=== PATIENT | female | born 1935 | race Caucasian/White ===

== ENCOUNTER 2016-03-31 17:37 | Inpatient (IN) | payer MEDICARE, BC ==
[~2016-03-31] VITALS: Ht 165.1 cm; Wt 74.8 kg
[2016-03-31 17:54] VITALS: BP 184/69
[2016-03-31 18:28] LABS: LYMPHOCYTES % (AUTO) 22.9 % (20.0-45.0); MEAN CORPUSCULAR HEMOGLOBIN 22.5 PG (27.0-31.0); MEAN CORPUSCULAR HGB CONC 30.7 G/DL (32.0-36.0); MEAN CORPUSCULAR VOLUME 73 FL (80-99); MEAN PLATELET VOLUME 7.6 FL (6.5-10.1); MONOCYTES % (AUTO) 8.5 % (1.0-10.0); NEUTROPHILS % (AUTO) 66.6 % (45.0-75.0); PLATELET COUNT 331 K/UL (150-450); RED BLOOD COUNT 4.82 M/UL (4.20-5.40); RED CELL DISTRIBUTION WIDTH 21.9 % (11.6-14.8); WHITE BLOOD COUNT 8.1 K/UL (4.8-10.8)
[2016-03-31 18:46] LABS: TROPONIN I < 0.30 ng/mL (<=0.30)
[2016-03-31 18:49] LABS: ALANINE AMINOTRANSFERASE 10 U/L (3-33); ALBUMIN/GLOBULIN RATIO 1.3 (1.0-2.7); ANION GAP 15 (5-15); ASPARTATE AMINO TRANSFERASE 25 U/L (5-40); CALCIUM 8.9 mg/dL (8.6-10.2); CARBON DIOXIDE 26 mEQ/L (20-30); CHLORIDE 98 mEQ/L (98-107); CREATININE 0.8 mg/dL (0.5-0.9); HEMOLYSIS 134; POTASSIUM 4.9 mEQ/L (3.4-4.9); SODIUM 139 mEQ/L (135-145); TOTAL PROTEIN 6.3 g/dL (6.6-8.7)
--- NOTE | 2016-03-31 19:12 | Emergency Room Report ---
History of Present Illness General Chief Complaint: Chest Pain Source: Patient, EMS Present Illness HPI Patient with increasing episodes of chest pain through the last 2 weeks. Now today, severe 8-9/10 chest pressure = substernal, associated nausea with exertion today. EMS treated with nitrates and aspirin. Improved with nitrates - pain dec to 3. Never with hypertension. This was also noted by EMS. Patient denies BECK, dyspnea, fever, cough, NVD, chest wall pain, palpitations, diaphoresis, anxiety, change in bowels, dysuria, rashes. H/O dementia, hypothyroidism, glaucoma, breast cancer. 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 Last Menstrual Period: YEARS Reviewed Nursing Documentation: PMH: Agreed, PSxH: Agreed Nursing Documentation-PMH Past Medical History: No Stated History Hx Cardiac Problems: No Hx Hypertension: No Hx Diabetes: No Review of Systems All Other Systems: negative except mentioned in HPI Physical Exam Vital Signs Date Time Temp Pulse Resp B/P Pulse Ox O2 Delivery O2 Flow Rate FiO2 03/31/16 17:38 98.4 60 13 184/69 100 Room Air Sp02 EP Interpretation: reviewed, normal General Appearance: well appearing, no apparent distress, alert Head: normocephalic, atraumatic Eyes: bilateral eye PERRL, bilateral eye normal inspection ENT: moist mucus membranes Neck: full range of motion, supple, no bony tend Respiratory: chest non-tender, lungs clear, normal breath sounds, other - masectomies Cardiovascular #1: regular rate, rhythm, no murmur, edema Cardiovascular #2: 2+ radial (L) Gastrointestinal: normal inspection, normal bowel sounds, non tender Musculoskeletal: digits/nails normal, normal range of motion Neurologic: alert, motor strength/tone normal, DTRs symmetric, sensory intact, speech normal Psychiatric: other - poor recent memory Skin: normal color, warm/dry, other - lesion lower leg Medical Decision Making Diagnostic Impression: Primary Impression: ACS (acute coronary syndrome) Additional Impression: Hypertension Qualified Codes: I10 - Essential (primary) hypertension ER Course Patient with 2 weeks of intermittent chest pain, now more severe today. DDx: ACS, AMI, chest wall pain, GERD amongst others. Complicated patient as history of dementia. New hypertension. Evaluation with EKG, labs, CXR. Continued treatment with nitrates. Aspirin given in field. Patient sy strongly suggestive of ACS with prolonged chest pain at rest. Improved with nitrates. EKG no AMI. CXR - axillary clips, L effusion, cardiomegaly. Labs negative initial troponin. Normal WBC, slight anemia. Patient initially refused admission. Improved but still hypertensive. Admit tele Dr. Lee. Laboratory Tests Test 03/31/16 18:07 04/01/16 05:55 White Blood Count 8.1 K/UL (4.8-10.8) 7.7 K/UL (4.8-10.8) Red Blood Count 4.82 M/UL (4.20-5.40) 5.16 M/UL (4.20-5.40) Hemoglobin 10.9 G/DL (12.0-16.0) L 11.5 G/DL (12.0-16.0) L Hematocrit 35.4 % (37.0-47.0) L 37.8 % (37.0-47.0) Mean Corpuscular Volume 73 FL (80-99) L 73 FL (80-99) L Mean Corpuscular Hemoglobin 22.5 PG (27.0-31.0) L 22.4 PG (27.0-31.0) L Mean Corpuscular Hemoglobin Concent 30.7 G/DL (32.0-36.0) L 30.6 G/DL (32.0-36.0) L Red Cell Distribution Width 21.9 % (11.6-14.8) H 21.7 % (11.6-14.8) H Platelet Count 331 K/UL (150-450) 343 K/UL (150-450) Mean Platelet Volume 7.6 FL (6.5-10.1) 7.8 FL (6.5-10.1) Neutrophils (%) (Auto) 66.6 % (45.0-75.0) 74.0 % (45.0-75.0) Lymphocytes (%) (Auto) 22.9 % (20.0-45.0) 16.6 % (20.0-45.0) L Monocytes (%) (Auto) 8.5 % (1.0-10.0) 7.3 % (1.0-10.0) Eosinophils (%) (Auto) 1.0 % (0.0-3.0) 0.6 % (0.0-3.0) Basophils (%) (Auto) 1.0 % (0.0-2.0) 1.4 % (0.0-2.0) Sodium Level 139 mEQ/L (135-145) Potassium Level 4.9 mEQ/L (3.4-4.9) Chloride Level 98 mEQ/L (98-107) Carbon Dioxide Level 26 mEQ/L (20-30) Anion Gap 15 (5-15) Blood Urea Nitrogen 18 mg/dL (7-23) Creatinine 0.8 mg/dL (0.5-0.9) Estimate Glomerular Filtration Rate mL/min (>60) Glucose Level 99 mg/dL (74-106) Calcium Level 8.9 mg/dL (8.6-10.2) Total Bilirubin 0.5 mg/dL (0.0-1.2) Aspartate Amino Transferase (AST) 25 U/L (5-40) Alanine Aminotransferase (ALT) 10 U/L (3-33) Alkaline Phosphatase 81 U/L (35-104) Total Creatine Kinase 73 U/L (26-140) Troponin I < 0.30 ng/mL (<=0.30) Pending Total Protein 6.3 g/dL (6.6-8.7) L Albumin 3.6 g/dL (3.5-5.2) Globulin 2.7 g/dL Albumin/Globulin Ratio 1.3 (1.0-2.7) Prothrombin Time Pending Prothrombin Time INR Pending PTT Pending C-Reactive Protein, Quantitative Pending Triglycerides Level Pending Cholesterol Level Pending LDL Cholesterol Pending HDL Cholesterol Pending Cholesterol/HDL Ratio Pending Thyroid Stimulating Hormone (TSH) Pending EKG Diagnostic Results Rate: bradycardiac ST Segments: no acute changes Rhythm Strip Diag. Results EP Interpretation: yes Rhythm: no PVC's, no ectopy, other - Stanton Chest X-Ray Diagnostic Results EP Interpretation: Yes Findings: no consolidation, no effusion, no pneumothorax, other - scoleosis and inc cor Number of Views: 1 Last Vital Signs Date Time Temp Pulse Resp B/P Pulse Ox O2 Delivery O2 Flow Rate FiO2 04/01/16 06:29 174/79 04/01/16 04:00 97.0 57 20 96 Room Air Status: improved Disposition: ADMITTED INPATIENT Condition: Serious Referrals: NOT CHOSEN IPA/,REFERRING (PCP) Quintin Nation M.D. Mar 31, 2016 19:12
[2016-03-31 19:30] VITALS: BP 162/71
[2016-03-31 20:30] VITALS: BP 153/71
[2016-03-31] MEDS ORDERED: Diltiazem 25mg/5ml IV PRN (22:00)
[2016-03-31] MEDS ORDERED: Miralax 17gm pkt ORAL PRN (22:00)
[2016-03-31] MEDS ORDERED: Nitroglycerin Subl 0.4mg tab (Bottle Of 25) SL PRN (22:00)
[2016-03-31] MEDS ORDERED: Ketorolac 30mg Inj IV PRN (22:00)
[2016-03-31] MEDS ORDERED: DuoNeb 0.5-3(2.5)mg/3ml neb HHN PRN (22:00)
[2016-04-01] VITALS (8 sets, daily range): BP systolic 125–188; BP diastolic 75–96
[2016-04-01] MEDS: Enalaprilat 2.5mg/2ml Inj IV PRN ×3 (00:41→17:21)
[2016-04-01] MEDS ORDERED: Timolol 0.5% Op Soln 2.5ml BOTH EYES ONE ×2 (01:00→01:30)
[2016-04-01] MEDS ORDERED: BISACODYL10 M1 RC (04:07)
[2016-04-01] MEDS ORDERED: LYRICA75 M1 ORAL (04:07)
[2016-04-01] MEDS ORDERED: POLYETHYLENE GL17 GM ORAL (04:07)
[2016-04-01] MEDS ORDERED: MELATONIN5 M4 ORAL (04:07)
[2016-04-01] MEDS ORDERED: BENADRYL25 M3 PO (04:07)
[2016-04-01] MEDS ORDERED: COMBIGAN EYE DRO5 ML OP (04:07)
[2016-04-01] MEDS ORDERED: FAMOTIDINE20 MG ORAL (04:07)
[2016-04-01] MEDS ORDERED: CALCIUM CARBON500 M1 PO (04:07)
[2016-04-01] MEDS ORDERED: LEVOTHYROXINE50 MCG ORAL (04:07)
[2016-04-01] MEDS ORDERED: IMODIUM A-D2 M2 PO (04:07)
[2016-04-01] MEDS ORDERED: DOCUSATE SODIU100 M2 ORAL (04:07)
[2016-04-01] MEDS ORDERED: LEXAPRO10 MG ORAL (04:07)
[2016-04-01] MEDS ORDERED: ROBITUSSIN COU1 EACH PO (04:34)
[2016-04-01] MEDS ORDERED: TRAVATAN Z5 ML OP (04:34)
[2016-04-01] MEDS ORDERED: TRAZODONE HCL300 MG ORAL (04:34)
[2016-04-01] MEDS ORDERED: TYLENOL EXTRA500 MG ORAL (04:34)
[2016-04-01] MEDS ORDERED: SEROQUEL50 MG ORAL ×2 (04:34)
[2016-04-01] MEDS ORDERED: FLECTOR1 EACH TP (04:34)
[2016-04-01] MEDS ORDERED: VITAMIN D400 INTLU ORAL (04:34)
[2016-04-01] MEDS ORDERED: VOLTAREN100 G1 TP ×2 (04:35)
[2016-04-01 07:27] LABS: BASOPHILS % (AUTO) 1.4 % (0.0-2.0); EOSINOPHILS % (AUTO) 0.6 % (0.0-3.0); LYMPHOCYTES % (AUTO) 16.6 % (20.0-45.0); MEAN CORPUSCULAR HEMOGLOBIN 22.4 PG (27.0-31.0); MEAN CORPUSCULAR HGB CONC 30.6 G/DL (32.0-36.0); MEAN CORPUSCULAR VOLUME 73 FL (80-99); MEAN PLATELET VOLUME 7.8 FL (6.5-10.1); MONOCYTES % (AUTO) 7.3 % (1.0-10.0); PLATELET COUNT 343 K/UL (150-450); RED BLOOD COUNT 5.16 M/UL (4.20-5.40); RED CELL DISTRIBUTION WIDTH 21.7 % (11.6-14.8); WHITE BLOOD COUNT 7.7 K/UL (4.8-10.8)
[2016-04-01 08:07] LABS: TROPONIN I < 0.30 ng/mL (<=0.30)
[2016-04-01 08:11] LABS: CHOLESTEROL 240 mg/dL (< 200); CRP QUANT < 0.3 mg/dL (< 0.5); HEMOLYSIS 30; LDL CHOLESTEROL (CALC.) 139 mg/dL (60-99)
[2016-04-01] MEDS: Aspirin Baby 81mg ORAL SCH (08:54)
[2016-04-01] MEDS: Timolol 0.5% Op Soln 2.5ml BOTH EYES SCH ×2 (08:54→17:21)
[2016-04-01] MEDS: Heparin 5000 units/ml inj SUBQ SCH ×2 (08:55→21:32)
[2016-04-01] MEDS ORDERED: Docusate 100mg cap ORAL PRN (11:15)
[2016-04-01] MEDS: Lyrica 75mg cap ORAL SCH ×2 (12:03→17:22)
--- NOTE | 2016-04-01 12:28 | Diagnostic Imaging Report ---
Indication: Chest pain Technique: One view of the chest Comparison: none Findings: There is blunting of left costophrenic angle. There is mild retrocardiac atelectasis and/or consolidation. The heart is enlarged. The aorta is tortuous.. Surgical clips are seen in the left axilla Impression: Small left pleural effusion Left basilar atelectasis and/or consolidation Post surgical changes of the left axilla Cardiomegaly This agrees with the preliminary interpretation provided by the emergency room physician
--- NOTE | 2016-04-01 14:37 | Consultation ---
History of Present Illness General Date patient seen: Apr 01, 2016 Chief Complaint: Chest Pain Referring physician: Dr. Murphy Reason for Consultation: Inpatient management Present Illness HPI 80 year old female with hx of advanced dementia, htn, chronic anemia, assisted living resident, EMILEE with cc chest pain through the last 2 weeks. Pt's blood pressure was apparently very high (not documented). EMS treated the patient with nitrates and aspirin and she improved with nitrates. She is admitted to rule out ACS. Currently pt is asymptomatic. She is anxious that she might get another episode of chest pain. Allergies: Coded Allergies: CODEINE (Verified Allergy, Unknown, 03/31/16) LATEX (Verified Allergy, Unknown, 03/31/16) LEMON (Verified Allergy, Unknown, 03/31/16) SULFA (SULFONAMIDE ANTIBIOTICS) (Unverified Allergy, Unknown, 03/31/16) Uncoded Allergies: SULFA (Allergy, Unknown, 03/31/16) Medication History Scheduled Brimonidine Tartrate/Timolol (Combigan Eye Drops), 1 DRP OP BID, (Reported) Calcium Carbonate (Calcium Carbonate), 500 MG PO EVERY 4 HOURS, (Reported) Diclofenac Sodium (Voltaren), 100 GM TP TID, (Reported) Escitalopram Oxalate* (Lexapro*), 10 MG ORAL BEDTIME, (Reported) Famotidine (Famotidine), 20 MG ORAL TWICE A DAY, (Reported) Levothyroxine Sodium* (Levothyroxine Sodium*), 50 MCG ORAL DAILY, (Reported) Melatonin (Melatonin), 5 MG ORAL BEDTIME, (Reported) Pregabalin* (Lyrica*), 75 MG ORAL THREE TIMES A DAY, (Reported) Quetiapine Fumarate (Seroquel), 25 MG ORAL BEDTIME, (Reported) Travoprost (Travatan Z), 1 DRP OP BEDTIME, (Reported) Trazodone Hcl (Trazodone Hcl), 300 MG ORAL BEDTIME, (Reported) Vitamin D (Vitamin D3), 5,000 UNITS ORAL DAILY, (Reported) Scheduled PRN Acetaminophen* (Tylenol Extra Strength*), 650 MG ORAL Q6H PRN for For Pain, ( Reported) Bisacodyl (Bisacodyl), 10 MG RC DAILY PRN for Constipation, (Reported) Diclofenac Epolamine (Flector), 1 EACH TP EVERY 12 HOURS PRN for For Pain, ( Reported) Diclofenac Sodium (Voltaren), 100 GM TP EVERY 6 HOURS PRN for For Pain, ( Reported) Diphenhydramine HCl (Benadryl), 25 MG PO BEDTIME PRN for Insomnia, (Reported) Docusate Sodium (Docusate Sodium), 100 MG ORAL BID PRN for Constipation, ( Reported) Guaifenesin/Dextromethorphan (Robitussin Sxssw-Wvnut-Llba Dm), 10 ML PO EVERY 4 HOURS PRN for For Cough, (Reported) Loperamide HCl (Imodium A-D), 2 MG PO for Diarrhea, (Reported) Polyethylene Glycol 3350* (Polyethylene Glycol 3350*), 17 GM ORAL DAILY PRN for Constipation, (Reported) Quetiapine Fumarate (Seroquel), 25 MG ORAL EVERY 4 HOURS PRN for For Anxiety, ( Reported) Trazodone Hcl (Trazodone Hcl), 75 MG ORAL BEDTIME PRN for Insomnia, (Reported) Patient History Healthcare decision maker Resuscitation status Advanced Directive on File Past Medical/Surgical History Past Medical/Surgical History: (1) Advanced dementia (2) Chronic anemia Review of Systems All Other Systems: negative except mentioned in HPI Physical Exam General Appearance: WD/WN Lines, tubes and drains: peripheral HEENT: normocephalic, atraumatic Neck: non-tender, normal alignment Respiratory/Chest: chest wall non-tender, lungs clear Breasts: no masses Cardiovascular/Chest: normal peripheral pulses, normal rate Abdomen: normal bowel sounds, non tender Extremities: normal range of motion, non-tender Skin Exam: other - blow knee lesions, see the pictures Neurologic: chummer II-XII grossly normal, no motor/sensory deficits Last 24 Hour Vital Signs Date Time Temp Pulse Resp B/P Pulse Ox O2 Delivery O2 Flow Rate FiO2 04/01/16 13:02 97.4 04/01/16 12:03 80 134/92 04/01/16 12:00 97.4 80 19 134/92 95 Room Air 04/01/16 09:57 04/01/16 09:54 97.0 78 18 163/93 96 Room Air 04/01/16 08:00 97.0 78 18 163/93 96 Room Air 04/01/16 08:00 68 04/01/16 06:29 174/79 04/01/16 04:00 97.0 57 20 169/75 96 Room Air 04/01/16 04:00 55 04/01/16 00:41 164/91 04/01/16 00:15 155/95 04/01/16 00:00 96.8 65 20 164/91 96 Room Air 04/01/16 00:00 61 03/31/16 20:30 96.6 71 18 153/71 96 Room Air 03/31/16 19:51 98.4 81 16 162/71 100 Room Air 03/31/16 19:30 98.4 81 16 162/71 100 Room Air 03/31/16 19:13 196/60 03/31/16 19:12 190/73 03/31/16 17:54 98.4 87 13 184/69 100 Room Air 03/31/16 17:54 60 13 Room Air 03/31/16 17:38 98.4 60 13 184/69 100 Room Air Laboratory Tests Test 03/31/16 18:07 04/01/16 05:55 White Blood Count 8.1 K/UL (4.8-10.8) 7.7 K/UL (4.8-10.8) Red Blood Count 4.82 M/UL (4.20-5.40) 5.16 M/UL (4.20-5.40) Hemoglobin 10.9 G/DL (12.0-16.0) L 11.5 G/DL (12.0-16.0) L Hematocrit 35.4 % (37.0-47.0) L 37.8 % (37.0-47.0) Mean Corpuscular Volume 73 FL (80-99) L 73 FL (80-99) L Mean Corpuscular Hemoglobin 22.5 PG (27.0-31.0) L 22.4 PG (27.0-31.0) L Mean Corpuscular Hemoglobin Concent 30.7 G/DL (32.0-36.0) L 30.6 G/DL (32.0-36.0) L Red Cell Distribution Width 21.9 % (11.6-14.8) H 21.7 % (11.6-14.8) H Platelet Count 331 K/UL (150-450) 343 K/UL (150-450) Mean Platelet Volume 7.6 FL (6.5-10.1) 7.8 FL (6.5-10.1) Neutrophils (%) (Auto) 66.6 % (45.0-75.0) 74.0 % (45.0-75.0) Lymphocytes (%) (Auto) 22.9 % (20.0-45.0) 16.6 % (20.0-45.0) L Monocytes (%) (Auto) 8.5 % (1.0-10.0) 7.3 % (1.0-10.0) Eosinophils (%) (Auto) 1.0 % (0.0-3.0) 0.6 % (0.0-3.0) Basophils (%) (Auto) 1.0 % (0.0-2.0) 1.4 % (0.0-2.0) Sodium Level 139 mEQ/L (135-145) Potassium Level 4.9 mEQ/L (3.4-4.9) Chloride Level 98 mEQ/L (98-107) Carbon Dioxide Level 26 mEQ/L (20-30) Anion Gap 15 (5-15) Blood Urea Nitrogen 18 mg/dL (7-23) Creatinine 0.8 mg/dL (0.5-0.9) Estimat Glomerular Filtration Rate mL/min (>60) Glucose Level 99 mg/dL (74-106) Calcium Level 8.9 mg/dL (8.6-10.2) Total Bilirubin 0.5 mg/dL (0.0-1.2) Aspartate Amino Transf (AST/SGOT) 25 U/L (5-40) Alanine Aminotransferase (ALT/SGPT) 10 U/L (3-33) Alkaline Phosphatase 81 U/L (35-104) Total Creatine Kinase 73 U/L (26-140) Troponin I < 0.30 ng/mL (<=0.30) < 0.30 ng/mL (<=0.30) Total Protein 6.3 g/dL (6.6-8.7) L Albumin 3.6 g/dL (3.5-5.2) Globulin 2.7 g/dL Albumin/Globulin Ratio 1.3 (1.0-2.7) Prothrombin Time 10.0 SEC (9.30-11.50) Prothromb Time International Ratio 1.0 (0.9-1.1) Activated Partial Thromboplast Time 23 SEC (23-33) C-Reactive Protein, Quantitative < 0.3 mg/dL (< 0.5) Triglycerides Level 109 mg/dL (< 150) Cholesterol Level 240 mg/dL (< 200) H LDL Cholesterol 139 mg/dL (60-99) H HDL Cholesterol 79 mg/dL (> 60) H Cholesterol/HDL Ratio 3.0 (3.3-4.4) L Thyroid Stimulating Hormone (TSH) 4.040 uIU/mL (0.300-4.500) Height (Feet): 5 Height (Inches): 5.00 Weight (Pounds): 165 Medications Current Medications Medications (Trade) Dose Ordered Sig/Blossom Route PRN Reason Start Time Stop Time Status Last Admin Dose Admin Acetaminophen (Tylenol) 650 mg Q4H PRN ORAL Mild Pain/Temp > 100.5 04/01/16 02:00 05/01/16 01:59 04/01/16 02:12 Albuterol/ Ipratropium (DuoNeb 0.5-3(2.5)mg/3ml) 3 ml Q4H PRN HHN Shortness of Breath 03/31/16 22:00 04/05/16 21:59 Aspirin (ASA) 162 mg DAILY ORAL 04/01/16 09:00 05/01/16 08:59 04/01/16 08:54 Bisacodyl (Dulcolax) 10 mg DAILYPRN PRN RECTAL Constipation 04/01/16 11:15 05/01/16 11:14 Carvedilol (Coreg) 3.125 mg BID ORAL 04/01/16 11:00 05/01/16 10:59 04/01/16 12:03 Diltiazem HCl (Cardizem) 10 mg EVERY HOUR PRN IV heart rate more than 120, 03/31/16 22:00 04/30/16 21:59 Docusate Sodium (Colace) 100 mg Q12H PRN ORAL Constipation 04/01/16 11:15 05/01/16 11:14 Enalaprilat (Vasotec) 5 mg Q6H PRN IV sbp more than 160 04/01/16 16:00 05/01/16 15:59 Escitalopram Oxalate (Lexapro) 10 mg BEDTIME ORAL 04/01/16 21:00 05/01/16 20:59 Heparin Sodium (Porcine) (Heparin 5000 units/ml) 5,000 units EVERY 12 HOURS SUBQ 04/01/16 09:00 05/01/16 08:59 04/01/16 08:55 Latanoprost (Xalatan) 1 drop BEDTIME BOTH EYES 04/01/16 21:00 05/01/16 20:59 Levothyroxine Sodium (Synthroid) 50 mcg DAILY@0630 ORAL 04/02/16 06:30 05/02/16 06:29 Nitroglycerin (Ntg) 0.4 mg Q5MIN X 3 DOSES PRN SL Prn Chest Pain 03/31/16 22:00 04/30/16 21:59 Ondansetron HCl (Zofran) 4 mg Q6H PRN IVP Nausea & Vomiting 03/31/16 22:00 04/30/16 21:59 Pantoprazole (Protonix) 40 mg DAILY ORAL 04/01/16 09:00 05/01/16 08:59 04/01/16 08:54 Polyethylene Glycol (Miralax) 17 gm DAILYPRN PRN ORAL Constipation 03/31/16 22:00 04/30/16 21:59 Pregabalin (Lyrica) 75 mg THREE TIMES A DAY ORAL 04/01/16 13:00 05/01/16 12:59 04/01/16 12:03 Quetiapine Fumarate (SEROquel) 25 mg BEDTIME ORAL 04/01/16 21:00 05/01/16 20:59 Temazepam (Restoril) 15 mg HSPRN PRN ORAL Insomnia 03/31/16 22:00 04/07/16 21:59 Timolol Maleate (Timoptic 0.5% Op Soln) 1 drop TWICE A DAY BOTH EYES 04/01/16 09:00 05/01/16 08:59 04/01/16 08:54 Assessment/Plan Problem List: (1) ACS (acute coronary syndrome) ICD Codes: I24.9 - Acute ischemic heart disease, unspecified SNOMED: 387495032 (2) Chronic anemia ICD Codes: D64.9 - Anemia, unspecified SNOMED: 550375991 (3) Advanced dementia ICD Codes: F03.90 - Unspecified dementia without behavioral disturbance SNOMED: 96208809 Assessment/Plan telemetry monitoring echo watch bp and treat PE as cause of chest pain is very unlikely cardio evaluation serial ekg, troponin. ALDAIR HUMMEL Apr 01, 2016 14:37
--- NOTE | 2016-04-01 17:45 | History & Physical ---
History and Physical History & Physicial Dictated for Int Med-Dr Lee no. [id number]. DAI HAYWARD Apr 01, 2016 17:45
[2016-04-01 21:48] LABS: TROPONIN I < 0.30 ng/mL (<=0.30)
--- NOTE | 2016-04-01 21:58 | History and Physical Report ---
DATE OF ADMISSION: 03/31/2016 CHIEF COMPLAINT: The patient is an 80-year-old white female, presents with chief complaint of elevated blood pressure and chest pain. HISTORY OF PRESENT ILLNESS: The patient is a resident of [facility]. Much of the history and physical is obtained from the patient's caregiver, who is at the bedside. According to staff at [facility], the patient's blood pressure became elevated to 200/90. The patient then began to complaint of chest pain. The chest pain has been lasting for approximately three days. Chest pain has been on and off. The patient presented to [place] emergency room. The patient is found to have blood pressure of 210/90. The patient was admitted for chest pain to rule out acute coronary syndrome. PAST MEDICAL HISTORY: Significant for 1. Hypertension. 2. Depression. 3. History of left breast cancer. PAST SURGICAL HISTORY: Significant for left mastectomy in 2008. MEDICATIONS: Current medications 1. Timolol one drop to both eyes twice daily. 2. Calcium carbonate 500 mg one tablet p.o. times daily. 3. Combigan eyedrops one drop to both eyes twice daily. 4. Voltaren 100 mg one tablet p.o. q. 6 h. p.r.n. 5. Lexapro 10 mg one tablet p.o. at bedtime. 6. Pepcid 20 mg one tablet p.o. twice daily. 7. Levoxyl 50 mcg one tablet p.o. daily. 8. Melatonin 5 mg one tablet p.o. at bedtime. 9. Lyrica 75 mg one tablet p.o. three times daily. 10. Seroquel 25 mg one tablet p.o. q.4 h. p.r.n. 11. Travatan one drop both eyes at bedtime. 12. Trazodone 300 mg one tablet p.o. at bedtime. 13. Vitamin D 400 units one tablet p.o. daily. ALLERGIES: 1. Codeine. 2. Latex. 3. Malka. 4. sulfa. SOCIAL HISTORY: The patient is a . The patient lives at [facility]. The patient denies tobacco or alcohol use. REVIEW OF SYSTEMS: Constitutional: The patient denies weight loss or weight gain. The patient denies fevers or chills. HEENT: The patient denies ear or throat pain. Cardiovascular: The patient complains of chest pain as above. The patient denies palpitations. Abdomen: The patient denies nausea, vomiting, diarrhea or constipation. Genitourinary: The patient denies dysuria or increased frequency of urination. Neuromuscular: The patient denies seizures or generalized weakness. PHYSICAL EXAMINATION: GENERAL: The patient is well developed and well nourished white female, in no apparent distress. VITAL SIGNS: Temperature 97.4 degrees, pulse 88, blood pressure 188/96, and respirations 19. HEENT: Eyes, pupils are equal and responsive to light and accommodation. Extraocular movements are intact. NECK: Supple. No lymphadenopathy. LUNGS: Clear to auscultation bilaterally without wheezes or rales. CARDIOVASCULAR: Regular rhythm and rate. S1 and S2 normal without murmurs, rubs, or gallops. ABDOMEN: Soft, nontender, and nondistended. Positive bowel sounds. No evidence of hepatosplenomegaly. Currently, no rebound or guarding. EXTREMITIES: No clubbing, cyanosis or edema. RECTAL/GENITAL: Refused. NEUROLOGIC: Cranial nerves II through XII are grossly intact without focal deficits. Motor strength is 5/5 bilaterally. Deep tendon reflexes are 2+ plantar. LABORATORY AND DIAGNOSTIC DATA: WBC 8.1, hemoglobin 10.9, hematocrit 35.4, and platelets 331,000. Sodium 139, potassium 4.9, chloride 98, CO2 26, BUN 18, creatinine 0.8, and glucose 99. Troponin less than 0.3. ASSESSMENT: This is a 80-year-old white female 1. Uncontrolled hypertension. 2. Chest pain. 3. Hypothyroidism. 4. Depression. 5. History of breast cancer. 6. Glaucoma. 7. Alzheimer's dementia. TREATMENT: 1. Uncontrolled hypertension. The patient has been placed empirically on Vasotec 5 mg IV q.6 h. p.r.n. The patient has also been started on Coreg 3.125 mg p.o. twice daily. A Cardiology consultation will be obtained with Dr. Santiago Villasenor. 2. Chest pain, as above. A Cardiology consultation will be obtained with Dr. Santiago Villasenor. Indeterminate troponin levels will be obtained. 3. Hypothyroidism. Continue Levoxyl as above. 4. Depression. Continue Lexapro as above. 5. History of breast cancer, status post mastectomy. 6. Glaucoma. Continue eye drops as above. 7. Alzheimer's dementia. Bennie Murphy M.D. DR: ANNABELLA JOB#: [id number] CC:
[2016-04-02] VITALS: BP 143/63
--- NOTE | 2016-04-02 03:01 | Cardiology Report ---
APPROVED REPORT EKG Measurement Heart [id number] Sinus bradycardia Cannot rule out Anterior infarct, age undetermined Abnormal ECG
[2016-04-02 04:25] VITALS: BP 107/55
[2016-04-02 07:30] LABS: ANION GAP 18 (5-15); CALCIUM 9.4 mg/dL (8.6-10.2); CARBON DIOXIDE 23 mEQ/L (20-30); CHLORIDE 100 mEQ/L (98-107); CREATININE 0.9 mg/dL (0.5-0.9); HEMOLYSIS 41; POTASSIUM 4.2 mEQ/L (3.4-4.9); SODIUM 141 mEQ/L (135-145)
[2016-04-02 08:25] VITALS: BP 149/64
[2016-04-02] MEDS: Timolol 0.5% Op Soln 2.5ml BOTH EYES SCH ×2 (08:49→17:35)
[2016-04-02] MEDS: Lyrica 75mg cap ORAL SCH ×3 (08:49→17:36)
[2016-04-02] MEDS: Heparin 5000 units/ml inj SUBQ SCH ×2 (08:50→20:37)
--- NOTE | 2016-04-02 09:18 | Wound Care Consultation ---
Wound Assessment Wound Assessment : Wound Present on Admission: Yes New Wound: No Status Change of Wound: No Wound Location Body Site Modif: left, lower, anterior Wound Location Body Site: leg Wound Type: other - small open wound Radha Test: Does not Radha Wound Thickness: Full Thickness Wound Length: 1.0 Wound Width: 1.0 Wound Depth: 0.3 Percent of Wound [place]/Red: 100 Wound Drainage Description: Serosanguineous Wound Drainage Amount: Scant Wound Drainage Odor: None/Absent Tissue Surrounding Wound: Erythemic Wound General Appearance: Reddened Wound Comment #1 Right lower anterior leg open wound etiology unknown #2 Right and Left lower leg edematous and scattered small discolorations Recommendation -Cleanse with saline pat dry apply adaptic cover with bordered gauze daily and PRN soiled/dislodged -Keep clean and dry -Turn and reposition -Optimize nutrition -Offload both heels -Elevate both legs -Assess and f/u for any changes JJ LEON RN Apr 02, 2016 09:18
[2016-04-02] MEDS: Aspirin Baby 81mg ORAL SCH (09:40)
[2016-04-02 10:08] LABS: BASOPHILS % (AUTO) 0.6 % (0.0-2.0); EOSINOPHILS % (AUTO) 0.5 % (0.0-3.0); LYMPHOCYTES % (AUTO) 20.5 % (20.0-45.0); MEAN CORPUSCULAR HEMOGLOBIN 22.4 PG (27.0-31.0); MEAN CORPUSCULAR HGB CONC 30.5 G/DL (32.0-36.0); MEAN CORPUSCULAR VOLUME 73 FL (80-99); MEAN PLATELET VOLUME 8.3 FL (6.5-10.1); MONOCYTES % (AUTO) 8.6 % (1.0-10.0); NEUTROPHILS % (AUTO) 69.8 % (45.0-75.0); PLATELET COUNT 341 K/UL (150-450); RED CELL DISTRIBUTION WIDTH 21.7 % (11.6-14.8); WHITE BLOOD COUNT 8.3 K/UL (4.8-10.8)
[2016-04-02 11:21] VITALS: BP 142/81
--- NOTE | 2016-04-02 11:46 | Pulmonology Progress Note ---
Assessment/Plan Problems: (1) ACS (acute coronary syndrome) (2) Chronic anemia (3) Advanced dementia Assessment/Plan echo cardio to see pt/ot serial enzymes all noted/med reviewed. Subjective ROS Limited/Unobtainable: No Interval Events: no new events, looks good Allergies: Coded Allergies: CODEINE (Verified Allergy, Unknown, 03/31/16) LATEX (Verified Allergy, Unknown, 03/31/16) LEMON (Verified Allergy, Unknown, 03/31/16) SULFA (SULFONAMIDE ANTIBIOTICS) (Unverified Allergy, Unknown, 03/31/16) Uncoded Allergies: SULFA (Allergy, Unknown, 03/31/16) Objective Last 24 Hour Vital Signs Date Time Temp Pulse Resp B/P Pulse Ox O2 Delivery O2 Flow Rate FiO2 04/02/16 11:21 97.0 49 20 142/81 96 Room Air 04/02/16 08:49 59 149/64 04/02/16 08:25 97.3 59 18 149/64 94 Room Air 04/02/16 08:07 57 04/02/16 06:33 60 14 Room Air 04/02/16 04:25 97.0 56 20 107/55 93 Room Air 04/02/16 04:00 44 04/02/16 00:00 47 04/02/16 00:00 97.5 56 20 143/63 99 Room Air 04/01/16 20:17 52 14 Room Air 04/01/16 20:00 60 04/01/16 20:00 96.8 52 18 125/79 95 Room Air 04/01/16 17:21 61 188/96 04/01/16 17:21 188/96 04/01/16 16:00 96.8 61 18 188/96 97 Room Air 04/01/16 13:02 97.4 04/01/16 12:03 80 134/92 04/01/16 12:00 59 04/01/16 12:00 97.4 80 19 134/92 95 Room Air Intake and Output 04/01/16 04/02/16 19:00 07:00 Intake Total 650 ml Balance 650 ml Intake Oral 650 ml # Voids 6 2 # Bowel Movements 6 General Appearance: WD/WN HEENT: normocephalic, atraumatic Respiratory/Chest: chest wall non-tender, lungs clear Breasts: no masses Cardiovascular: normal peripheral pulses Abdomen: normal bowel sounds, soft, non tender Extremities: no cyanosis, no clubbing Skin: no ulcers Neurologic/Psychiatric: no motor/sensory deficits Microbiology Date/Time Source Procedure Growth Status 03/31/16 20:30 Nasal Nares MRSA Culture - Final NO METHICILLIN RESISTANT STAPH AUREUS... Complete 03/31/16 20:30 Rectum VRE Culture - Final NO VANCOMYCIN RESISTANT ENTEROCOCCUS ... Complete Laboratory Tests 04/01/16 21:30: Troponin I < 0.30 04/02/16 06:00: Sodium Level 141, Potassium Level 4.2, Chloride Level 100, Carbon Dioxide Level 23, Anion Gap 18H, Blood Urea Nitrogen 13, Creatinine 0.9, Estimat Glomerular Filtration Rate , Glucose Level 86, Calcium Level 9.4 04/02/16 09:15: White Blood Count 8.3, Red Blood Count 4.80, Hemoglobin 10.7L, Hematocrit 35.2L , Mean Corpuscular Volume 73L, Mean Corpuscular Hemoglobin 22.4L, Mean Corpuscular Hemoglobin Concent 30.5L, Red Cell Distribution Width 21.7H, Platelet Count 341, Mean Platelet Volume 8.3, Neutrophils (%) (Auto) 69.8, Lymphocytes (%) (Auto) 20.5, Monocytes (%) (Auto) 8.6, Eosinophils (%) (Auto) 0.5, Basophils (%) (Auto) 0.6 04/02/16 09:19: Magnesium Level 1.9 Current Medications Medications (Trade) Dose Ordered Sig/Blossom Route PRN Reason Start Time Stop Time Status Last Admin Dose Admin Acetaminophen (Tylenol) 650 mg Q4H PRN ORAL Mild Pain/Temp > 100.5 04/01/16 02:00 05/01/16 01:59 04/01/16 02:12 Albuterol/ Ipratropium (DuoNeb 0.5-3(2.5)mg/3ml) 3 ml Q4H PRN HHN Shortness of Breath 03/31/16 22:00 04/05/16 21:59 Aspirin (ASA) 162 mg DAILY ORAL 04/01/16 09:00 05/01/16 08:59 04/02/16 09:40 Bisacodyl (Dulcolax) 10 mg DAILYPRN PRN RECTAL Constipation 04/01/16 11:15 05/01/16 11:14 Carvedilol (Coreg) 3.125 mg BID ORAL 04/01/16 11:00 05/01/16 10:59 04/01/16 17:21 Diltiazem HCl (Cardizem) 10 mg EVERY HOUR PRN IV heart rate more than 120, 03/31/16 22:00 04/30/16 21:59 Docusate Sodium (Colace) 100 mg Q12H PRN ORAL Constipation 04/01/16 11:15 05/01/16 11:14 Enalaprilat (Vasotec) 5 mg Q6H PRN IV sbp more than 160 04/01/16 16:00 05/01/16 15:59 04/01/16 17:21 Escitalopram Oxalate (Lexapro) 10 mg BEDTIME ORAL 04/01/16 21:00 05/01/16 20:59 04/01/16 21:30 Heparin Sodium (Porcine) (Heparin 5000 units/ml) 5,000 units EVERY 12 HOURS SUBQ 04/01/16 09:00 05/01/16 08:59 04/02/16 08:50 Latanoprost (Xalatan) 1 drop BEDTIME BOTH EYES 04/01/16 21:00 05/01/16 20:59 04/01/16 21:30 Levothyroxine Sodium (Synthroid) 50 mcg DAILY@0630 ORAL 04/02/16 06:30 05/02/16 06:29 04/02/16 06:42 Nitroglycerin (Ntg) 0.4 mg Q5MIN X 3 DOSES PRN SL Prn Chest Pain 03/31/16 22:00 04/30/16 21:59 Ondansetron HCl (Zofran) 4 mg Q6H PRN IVP Nausea & Vomiting 03/31/16 22:00 04/30/16 21:59 Pantoprazole (Protonix) 40 mg DAILY ORAL 04/01/16 09:00 05/01/16 08:59 04/02/16 08:49 Polyethylene Glycol (Miralax) 17 gm DAILYPRN PRN ORAL Constipation 03/31/16 22:00 04/30/16 21:59 Pregabalin (Lyrica) 75 mg THREE TIMES A DAY ORAL 04/01/16 13:00 05/01/16 12:59 04/02/16 08:49 Quetiapine Fumarate (SEROquel) 25 mg BEDTIME ORAL 04/01/16 21:00 05/01/16 20:59 04/01/16 21:30 Quetiapine Fumarate (SEROquel) 25 mg Q4HR PRN ORAL For Anxiety 04/01/16 15:15 05/01/16 15:14 Temazepam (Restoril) 15 mg HSPRN PRN ORAL Insomnia 03/31/16 22:00 04/07/16 21:59 Timolol Maleate (Timoptic 0.5% Op Soln) 1 drop TWICE A DAY BOTH EYES 04/01/16 09:00 05/01/16 08:59 04/02/16 08:49 ALDAIR HUMMEL Apr 02, 2016 11:46
--- NOTE | 2016-04-02 12:18 | Cardiology Progress Note ---
Assessment/Plan Assessment/Plan chest pain with [facility] of [facility] of [facility] s/ prbc tx breast cancer bilat phtn pt declines futher testin care take indicates her family does nto wan tfurther testing sinc e seh want to further testin g(same as she indicated at [facility]) she may be dcd back to facility consider hospice [id number] Objective Last 24 Hour Vital Signs Date Time Temp Pulse Resp B/P Pulse Ox O2 Delivery O2 Flow Rate FiO2 04/02/16 11:21 97.0 49 20 142/81 96 Room Air 04/02/16 08:49 59 149/64 04/02/16 08:25 97.3 59 18 149/64 94 Room Air 04/02/16 08:07 57 04/02/16 06:33 60 14 Room Air 04/02/16 04:25 97.0 56 20 107/55 93 Room Air 04/02/16 04:00 44 04/02/16 00:00 47 04/02/16 00:00 97.5 56 20 143/63 99 Room Air 04/01/16 20:17 52 14 Room Air 04/01/16 20:00 60 04/01/16 20:00 96.8 52 18 125/79 95 Room Air 04/01/16 17:21 61 188/96 04/01/16 17:21 188/96 04/01/16 16:00 96.8 61 18 188/96 97 Room Air 04/01/16 13:02 97.4 Intake and Output 04/01/16 04/02/16 19:00 07:00 Intake Total 650 ml Balance 650 ml Intake Oral 650 ml # Voids 6 2 # Bowel Movements 6 Laboratory Tests Test 04/01/16 21:30 04/02/16 06:00 04/02/16 09:15 04/02/16 09:19 Troponin I < 0.30 ng/mL (<=0.30) Sodium Level 141 mEQ/L (135-145) Potassium Level 4.2 mEQ/L (3.4-4.9) Chloride Level 100 mEQ/L (98-107) Carbon Dioxide Level 23 mEQ/L (20-30) Anion Gap 18 (5-15) H Blood Urea Nitrogen 13 mg/dL (7-23) Creatinine 0.9 mg/dL (0.5-0.9) Estimat Glomerular Filtration Rate mL/min (>60) Glucose Level 86 mg/dL (74-106) Calcium Level 9.4 mg/dL (8.6-10.2) White Blood Count 8.3 K/UL (4.8-10.8) Red Blood Count 4.80 M/UL (4.20-5.40) Hemoglobin 10.7 G/DL (12.0-16.0) L Hematocrit 35.2 % (37.0-47.0) L Mean Corpuscular Volume 73 FL (80-99) L Mean Corpuscular Hemoglobin 22.4 PG (27.0-31.0) L Mean Corpuscular Hemoglobin Concent 30.5 G/DL (32.0-36.0) L Red Cell Distribution Width 21.7 % (11.6-14.8) H Platelet Count 341 K/UL (150-450) Mean Platelet Volume 8.3 FL (6.5-10.1) Neutrophils (%) (Auto) 69.8 % (45.0-75.0) Lymphocytes (%) (Auto) 20.5 % (20.0-45.0) Monocytes (%) (Auto) 8.6 % (1.0-10.0) Eosinophils (%) (Auto) 0.5 % (0.0-3.0) Basophils (%) (Auto) 0.6 % (0.0-2.0) Magnesium Level 1.9 mg/dL (1.7-2.5) Microbiology Date/Time Source Procedure Growth Status 03/31/16 20:30 Nasal Nares MRSA Culture - Final NO METHICILLIN RESISTANT STAPH AUREUS... Complete 03/31/16 20:30 Rectum VRE Culture - Final NO VANCOMYCIN RESISTANT ENTEROCOCCUS ... Complete LINDA DE LUNA Apr 02, 2016 12:18
--- NOTE | 2016-04-02 12:42 | Internal Med Progress Note ---
Subjective Date of Service: Apr 02, 2016 Physician Name Dai Hayward Attending Physician Donny Lee MD Current Medications Medications (Trade) Dose Ordered Sig/Blossom Route PRN Reason Start Time Stop Time Status Last Admin Dose Admin Acetaminophen (Tylenol) 650 mg Q4H PRN ORAL Mild Pain/Temp > 100.5 04/01/16 02:00 05/01/16 01:59 04/01/16 02:12 Albuterol/ Ipratropium (DuoNeb 0.5-3(2.5)mg/3ml) 3 ml Q4H PRN HHN Shortness of Breath 03/31/16 22:00 04/05/16 21:59 Aspirin (ASA) 162 mg DAILY ORAL 04/01/16 09:00 05/01/16 08:59 04/02/16 09:40 Bisacodyl (Dulcolax) 10 mg DAILYPRN PRN RECTAL Constipation 04/01/16 11:15 05/01/16 11:14 Carvedilol (Coreg) 3.125 mg BID ORAL 04/01/16 11:00 05/01/16 10:59 04/01/16 17:21 Diltiazem HCl (Cardizem) 10 mg EVERY HOUR PRN IV heart rate more than 120, 03/31/16 22:00 04/30/16 21:59 Docusate Sodium (Colace) 100 mg Q12H PRN ORAL Constipation 04/01/16 11:15 05/01/16 11:14 Enalaprilat (Vasotec) 5 mg Q6H PRN IV sbp more than 160 04/01/16 16:00 05/01/16 15:59 04/01/16 17:21 Escitalopram Oxalate (Lexapro) 10 mg BEDTIME ORAL 04/01/16 21:00 05/01/16 20:59 04/01/16 21:30 Heparin Sodium (Porcine) (Heparin 5000 units/ml) 5,000 units EVERY 12 HOURS SUBQ 04/01/16 09:00 05/01/16 08:59 04/02/16 08:50 Latanoprost (Xalatan) 1 drop BEDTIME BOTH EYES 04/01/16 21:00 05/01/16 20:59 04/01/16 21:30 Levothyroxine Sodium (Synthroid) 50 mcg DAILY@0630 ORAL 04/02/16 06:30 05/02/16 06:29 04/02/16 06:42 Nitroglycerin (Ntg) 0.4 mg Q5MIN X 3 DOSES PRN SL Prn Chest Pain 03/31/16 22:00 04/30/16 21:59 Ondansetron HCl (Zofran) 4 mg Q6H PRN IVP Nausea & Vomiting 03/31/16 22:00 04/30/16 21:59 Pantoprazole (Protonix) 40 mg DAILY ORAL 04/01/16 09:00 05/01/16 08:59 04/02/16 08:49 Polyethylene Glycol (Miralax) 17 gm DAILYPRN PRN ORAL Constipation 03/31/16 22:00 04/30/16 21:59 Pregabalin (Lyrica) 75 mg THREE TIMES A DAY ORAL 04/01/16 13:00 05/01/16 12:59 04/02/16 08:49 Quetiapine Fumarate (SEROquel) 25 mg BEDTIME ORAL 04/01/16 21:00 05/01/16 20:59 04/01/16 21:30 Quetiapine Fumarate (SEROquel) 25 mg Q4HR PRN ORAL For Anxiety 04/01/16 15:15 05/01/16 15:14 Temazepam (Restoril) 15 mg HSPRN PRN ORAL Insomnia 03/31/16 22:00 04/07/16 21:59 Timolol Maleate (Timoptic 0.5% Op Soln) 1 drop TWICE A DAY BOTH EYES 04/01/16 09:00 05/01/16 08:59 04/02/16 08:49 Allergies: Coded Allergies: CODEINE (Verified Allergy, Unknown, 03/31/16) LATEX (Verified Allergy, Unknown, 03/31/16) LEMON (Verified Allergy, Unknown, 03/31/16) SULFA (SULFONAMIDE ANTIBIOTICS) (Unverified Allergy, Unknown, 03/31/16) Uncoded Allergies: SULFA (Allergy, Unknown, 03/31/16) ROS Limited/Unobtainable: No Constitutional: Reports: no symptoms HEENT: Reports: no symptoms Cardiovascular: Reports: chest pain Respiratory: Reports: no symptoms Gastrointestinal/Abdominal: Reports: no symptoms Genitourinary: Reports: no symptoms Neurologic/Psychiatric: Reports: no symptoms Subjective 80 YO F admitted with chest pain. Now left lung consolidation. Cover for Int Liu-Dr Lee. Patient wants to be discharged. Objective Last Vital Signs Date Time Temp Pulse Resp B/P Pulse Ox O2 Delivery O2 Flow Rate FiO2 04/02/16 11:21 97.0 49 20 142/81 96 Room Air General Appearance: WD/WN, no apparent distress, alert EENT: PERRL/EOMI, normal ENT inspection Neck: non-tender, normal alignment, supple, normal inspection Cardiovascular: normal peripheral pulses, normal rate, regular rhythm, no gallop/murmur Respiratory/Chest: chest wall non-tender, normal breath sounds, crackles/rales , rhonchi - bilaterally, expiratory wheezing Abdomen: normal bowel sounds, non tender, soft, no organomegaly, no mass Neurologic: top stitcher II-XII grossly normal, no motor/sensory deficits Skin: normal pigmentation, warm/dry Laboratory Tests Test 04/01/16 21:30 04/02/16 06:00 04/02/16 09:15 04/02/16 09:19 Troponin I < 0.30 ng/mL (<=0.30) Sodium Level 141 mEQ/L (135-145) Potassium Level 4.2 mEQ/L (3.4-4.9) Chloride Level 100 mEQ/L (98-107) Carbon Dioxide Level 23 mEQ/L (20-30) Anion Gap 18 (5-15) H Blood Urea Nitrogen 13 mg/dL (7-23) Creatinine 0.9 mg/dL (0.5-0.9) Estimat Glomerular Filtration Rate mL/min (>60) Glucose Level 86 mg/dL (74-106) Calcium Level 9.4 mg/dL (8.6-10.2) White Blood Count 8.3 K/UL (4.8-10.8) Red Blood Count 4.80 M/UL (4.20-5.40) Hemoglobin 10.7 G/DL (12.0-16.0) L Hematocrit 35.2 % (37.0-47.0) L Mean Corpuscular Volume 73 FL (80-99) L Mean Corpuscular Hemoglobin 22.4 PG (27.0-31.0) L Mean Corpuscular Hemoglobin Concent 30.5 G/DL (32.0-36.0) L Red Cell Distribution Width 21.7 % (11.6-14.8) H Platelet Count 341 K/UL (150-450) Mean Platelet Volume 8.3 FL (6.5-10.1) Neutrophils (%) (Auto) 69.8 % (45.0-75.0) Lymphocytes (%) (Auto) 20.5 % (20.0-45.0) Monocytes (%) (Auto) 8.6 % (1.0-10.0) Eosinophils (%) (Auto) 0.5 % (0.0-3.0) Basophils (%) (Auto) 0.6 % (0.0-2.0) Magnesium Level 1.9 mg/dL (1.7-2.5) Microbiology Date/Time Source Procedure Growth Status 03/31/16 20:30 Nasal Nares MRSA Culture - Final NO METHICILLIN RESISTANT STAPH AUREUS... Complete 03/31/16 20:30 Rectum VRE Culture - Final NO VANCOMYCIN RESISTANT ENTEROCOCCUS ... Complete Intake and Output 04/01/16 04/02/16 19:00 07:00 Intake Total 650 ml Balance 650 ml Intake Oral 650 ml # Voids 6 2 # Bowel Movements 6 Assessment/Plan Problem List: (1) Pneumonia Assessment & Plan: Left lower base. Start levaquin IV; await repeat chest xray. (2) Hypertension, accelerated Assessment & Plan: Cont IV vasotec and PO coreg. (3) Hypothyroidism Assessment & Plan: Cont levoxyl (4) Depression Assessment & Plan: Cont lexapro (5) Breast cancer Assessment & Plan: S/P mastectomy (6) Glaucoma Assessment & Plan: Cont eye drops. (7) Alzheimer's dementia Assessment & Plan: Cont namenda. (8) Chest pain Assessment & Plan: See cardiology note. Ruled out for PR-patient does not want further testing. Status: not improved DAI HAYWARD Apr 02, 2016 12:42
[2016-04-02] MEDS: Enalaprilat 2.5mg/2ml Inj IV PRN (15:58)
[2016-04-02 16:00] VITALS: BP 164/83
[2016-04-02] MEDS ORDERED: Tubing IV Secondary IV ONE (17:02)
[2016-04-02] MEDS ORDERED: NS 275ml ONE (17:02)
--- NOTE | 2016-04-02 18:48 | Consultation ---
DATE OF CONSULTATION: 04/02/2016 CARDIOLOGY CONSULTATION CONSULTING PHYSICIAN: Santiago Villasenor M.D. REFERRING PHYSICIAN: Slava Luevano M.D. REASON FOR REFERRAL: Chest pain. HISTORY OF PRESENT ILLNESS: This is an elderly female, who is a resident of a [facility] facility. The patient is mostly bedridden and presented to the hospital because of two weeks of chest pain. She indicates she has had two weeks of constant of right and left side of the chest and she has not found any relieving or exacerbating factors whatsoever, therefore she was transferred here. She has had some testing done. She was recently at the [facility] according to her rod hanger and she had some testing done. Her rod hanger indicates that her family does not wish for her to undergo any other testing at this time. She does not have any PND or orthopnea. She uses two pillows for keeping herself from getting dizzy. She does not really sit or stand because of the discomfort. She does not walk at all. Exertional dyspnea is not questionable, but the pain is persistently present. PAST MEDICAL HISTORY: Positive for history of significant anemia for which she has received several units of packed red cells over the past year or so. She is followed by Dr. Aria Davidson at [facility]. She has had a history of osteoarthritis, gastroesophageal reflux disease, hypothyroidism, peripheral neuropathy, iron deficiency anemia, and breast cancer involving the right and eventually the left breast as well. She was hospitalized and discharged in January 2016 for her chest pain with a diagnosis of possible non-ST elevation myocardial infarction. She has had history of syncope, possibly due to orthostatics and gastrointestinal bleed history as well as peripheral neuropathy. Apparently at [facility], she was started on iron and the question was infusion to iron. Orthostatics were positive. She was given some intravenous fluids. Echo done, but family and the patient did not want to wait for further results and the patient was eventually discharged home. Her echocardiogram showed ejection fraction of 64% reportedly. I do not have the rest of her cardiac workup available for me, but apparently did not pursue. ALLERGIES: Nevertheless, she is allergic to sulfa, codeine, and latex reportedly. REVIEW OF SYSTEMS: Gastrointestinal: Negative. Genitourinary: Negative. Pulmonary: Negative. Constitutional: Negative. Neurologic: She is unable to get up and walk around and do any kind of activity. PHYSICAL EXAMINATION: GENERAL: Shows to be elderly female, in no apparent respiratory distress, and appears somewhat forgetful. Her rod hanger is sitting at her bedside. The patient herself indicates and the rod hanger that the patient and family do not want any further testing. It is not clear to me why she was transferred to the hospital if those were her wishes. Nevertheless, she has had some testing done, the results of which are white count 8.3, hemoglobin 10.7, and platelet count of 341,000. Sodium is 141, potassium 4.2, chloride 100, bicarbonate 22, BUN of 13, creatinine 0.9, and glucose of 86. Her cardiac enzymes, three sets were all negative. Her total cholesterol 240, LDL of 139, HDL of 70, and TSH of 4.7. VITAL SIGNS: Blood pressure is 142/81, temperature is 97 degrees, and heart rate of 49. IMAGING: Her chest x-ray shows small left-sided pleural effusion, left basal atelectasis or consolidation, postsurgical changes of the left axilla, and cardiomegaly. Her electrocardiogram shows sinus bradycardia with nonspecific T-wave changes. Apparently, she had an echocardiogram. Final report shows ejection fraction of 55% to 60% with mild pulmonary hypertension in the 40s. Santiago Villasenor M.D. DR: BROOKS JOB#: [id number] CC:
[2016-04-02 20:00] VITALS: BP 139/68
[2016-04-03] MEDS ORDERED: Levofloxacin 250mg/D5W 50ml IVPB SCH (14:00)
[2016-04-04] MEDS ORDERED: COREG3.125 MG ORAL (11:47)
--- NOTE | 2016-04-04 11:47 | Discharge Summary ---
Discharge Summary Hospital Course Date of Admission Mar 31, 2016 at 18:20 Date of Discharge Apr 02, 2016 at 21:30 Admitting Diagnosis ACS HPI Jazmyn Benites is a 80 year old female who was admitted on Mar 31, 2016 at 18:20 for Acute Coronary Syndrome Hospital Course joann dolan #[id number] Discharge Medications New Medications: Carvedilol (Coreg) 3.125 Mg Tablet 3.125 MG ORAL EVERY 12 HOURS, #60 TAB Continued Medications: Acetaminophen* (Tylenol Extra Strength*) 500 Mg Tablet 650 MG ORAL Q6H PRN for For Pain, TAB 0 Refills Bisacodyl (Bisacodyl) 10 Mg Supp.rect 10 MG RC DAILY PRN for Constipation, SUPP Brimonidine Tartrate/Timolol (Combigan Eye Drops) 5 Ml Drops 1 DRP OP BID, ML Calcium Carbonate (Calcium Carbonate) 500 Mg Tablet 500 MG PO EVERY 4 HOURS, TAB Diclofenac Epolamine (Flector) 1 Each Patch.td12 1 EACH TP EVERY 12 HOURS PRN for For Pain, PATCH Diclofenac Sodium (Voltaren) 100 Gm Gel..gram. 100 GM TP EVERY 6 HOURS PRN for For Pain, GM Diclofenac Sodium (Voltaren) 100 Gm Gel..gram. 100 GM TP TID, GM Diphenhydramine HCl (Benadryl) 25 Mg Capsule 25 MG PO BEDTIME PRN for Insomnia, CAP Docusate Sodium (Docusate Sodium) 100 Mg Tablet 100 MG ORAL BID PRN for Constipation, #30 TAB 0 Refills Escitalopram Oxalate* (Lexapro*) 10 Mg Tablet 10 MG ORAL BEDTIME, TAB Famotidine (Famotidine) 20 Mg Tablet 20 MG ORAL TWICE A DAY, #60 TAB 0 Refills Guaifenesin/Dextromethorphan (Robitussin Oumjr-Wydam-Cyxd Dm) 1 Each Capsule 10 ML PO EVERY 4 HOURS PRN for For Cough, CAP Levothyroxine Sodium* (Levothyroxine Sodium*) 50 Mcg Tablet 50 MCG ORAL DAILY, TAB Take in the morning on an empty stomach, at least 30 minutes before food. Loperamide HCl (Imodium A-D) 2 Mg Capsule 2 MG PO PRN for Diarrhea, CAP Melatonin (Melatonin) 5 Mg Tablet 5 MG ORAL BEDTIME, TAB Polyethylene Glycol 3350* (Polyethylene Glycol 3350*) 17 Gm Powd.pack 17 GM ORAL DAILY PRN for Constipation, PACKET Pregabalin* (Lyrica*) 75 Mg Capsule 75 MG ORAL THREE TIMES A DAY, CAP Quetiapine Fumarate (Seroquel) 50 Mg Tablet 25 MG ORAL BEDTIME, #15 TAB 0 Refills Quetiapine Fumarate (Seroquel) 50 Mg Tablet 25 MG ORAL EVERY 4 HOURS PRN for For Anxiety, #15 TAB 0 Refills Travoprost (Travatan Z) 5 Ml Drops 1 DRP OP BEDTIME, ML Trazodone Hcl (Trazodone Hcl) 300 Mg Tablet 300 MG ORAL BEDTIME, TAB Trazodone Hcl (Trazodone Hcl) 300 Mg Tablet 75 MG ORAL BEDTIME PRN for Insomnia, TAB Vitamin D (Vitamin D3) 400 Unit Tablet 5000 UNITS ORAL DAILY, TAB Discharge Condition Upon Discharge: stable Discharge Disposition Patient was discharged to [facility] (01) Discharge Diagnoses: Fabian (Maria),Charlette PASCAL Apr 04, 2016 11:47
--- NOTE | 2016-04-04 23:48 | Discharge Summary 2 SIG ---
DATE OF ADMISSION: 03/31/2016 DATE OF DISCHARGE: 04/02/2016 REASON FOR HOSPITALIZATION: 80-year-old female, was brought to emergency department for evaluation due to the increased episode of chest pain over the last two weeks. She reported chest pain as severe 8 to 9 on a scale 1 to 10 most felt like a substernal chest pressure associated with nausea and exertion. She was given by paramedics aspirin and nitrates with some improvement. Pain decreased to 3/10. The patient denied a history of hypertension. Denied headache, dyspnea, cough, or wheezing. No fever. No chills. No nausea. No vomiting. No diarrhea. No palpitation. No diaphoresis. No dysuria. Workup in the emergency department revealed high blood pressure of 184/69. Troponin was negative. EKG revealed sinus rhythm, no ST changes. Chest x-ray showed left effusion with cardiomegaly . Patient was slightly anemic. The patient was treated for hypertension and transferred to telemetry floor for further management. ADMITTING DIAGNOSES: 1. Chest pain, rule out acute coronary syndrome. 2. Hypertensive urgency. 3. Mild anemia. HOSPITAL STAY: The patient admitted to telemetry floor. Serial troponin x3 were negative. Lipid panel revealed elevated total cholesterol of 240 and elevated LDL of 139. Triglycerides were within normal limits at 109. Echocardiogram revealed preserved ejection fraction of 55% to 60% and right ventricular systolic pressure of 49, consistent with moderate pulmonary hypertension as well as the mild left ventricular hypertrophy. Cardiology consult was requested. Fur Repair Inspector spoke with the patient. The patient declined further testing. Pain was controlled. Statin was added to existing medical regimen. Hemoglobin and hematocrit were within baseline, no trend down. Blood pressure was controlled with current regimen as per Cardiology. TSH was checked due to the history of the hypothyroidism, it was within normal limits. Current dose of levothyroxine was continued. The patient worked with physical and occupational therapists. The patient stated that the family does not want her to have further testing. Fur Repair Inspector cleared the patient for discharge back to facility. Pulse oximetry was stable on room air. No chest pain, no shortness of breath. Hemoglobin and hematocrit are at the baseline. The patient was stable for discharge. DISCHARGE DIAGNOSES: 1. Atypical chest pain (Acute coronary syndrome was ruled out) 2. Possibly chest pain of musculoskeletal origin 3. Hyperlipidemia. 4. Moderate pulmonary hypertension. 5. Mild anemia. 6. Hypertensive urgency. 7. Bilateral breast cancer status post mastectomy. 8. Moderate pulmonary hypertension. 9. Hypothyroidism. 10. Advanced dementia. DISCHARGE MEDICATIONS: See medication reconciliation list. DISCHARGE INSTRUCTIONS: The patient was discharged to the [facility] facility. Patient is to follow up with medical doctor at the facility. Donny Lee M.D. I have been assigned to dictate discharge summary on this account and I was not involved in the patient's management. Charlette [facility]Bay[facility] Hospital[facility] DR: EDMUND JOB#: [id number] CC: MINH
--- NOTE | 2016-04-05 09:56 | Cardiology Report ---
APPROVED REPORT EXAM: Two-dimensional and M-mode echocardiogram with Doppler and color Doppler. INDICATION Left Ventricular Function M-Mode DIMENSIONS IVSd1.6 (0.7-1.1cm)Left Atrium (MM)3.4 (1.6-4.0cm) LVDd4.5 (3.5-5.6cm)Aortic Root2.8 (2.0-3.7cm) PWd1.2 (0.7-1.1cm)Aortic Cusp Exc.1.8 (1.5-2.0cm) LVDs2.4 (2.5-4.0cm) PWs1.9 cm Normal left ventricular chamber size, systolic function and wall motion. Left ventricular ejection fraction estimated to be 55-60 %. Mild left ventricular hypertrophy. Anterior Echo-free space, may be due to pericardial fat or effusion. All other cardiac chamber sizes are within normal limits. Mild focal aortic valve sclerosis with adequate cusp excursion. Mildly thickened mitral valve leaflets with normal excursion. Mild mitral annulus and aortic root calcification. Pulmonic valve not well visualized. Normal tricuspid valve structure. A color flow and spectral Doppler study was performed and revealed: Trace aortic regurgitation. Mild mitral regurgitation. Mitral diastolic velocities suggest reduced left ventricular relaxation (Grade I). Mild tricuspid regurgitation. Tricuspid systolic velocities suggests peak right ventricular systolic pressure of 49 mmHg, consistent with moderate pulmonary hypertension. No pulmonic regurgitation present.
== END 2016-04-02 21:30 | disposition home or self-care (01) | DRG 313 ==
LOC: ENRESERVTM → ENRESERVDT → EDBD 17:37 → EMR 18:04 → 2E 18:20 → EDBEDREQ 19:34
DX: R07.89 Other chest pain (principal); I27.2 Other secondary pulmonary hypertension; G30.9 Alzheimer's disease, unspecified; F02.80 Dementia in other diseases classified elsewhere, unspecified severity, without behavioral disturbance, psychotic disturbance, mood disturbance, and anxiety; I10 Essential (primary) hypertension; E03.9 Hypothyroidism, unspecified; D64.9 Anemia, unspecified; H40.9 Unspecified glaucoma; F32.9 Major depressive disorder, single episode, unspecified; Z85.3 Personal history of malignant neoplasm of breast; Z88.2 Allergy status to sulfonamides
CPT/HCPCS: 36415; 71010; 80048; 80053; 80061; 82550; 83735; 84443; 84484; 85025; 85610; 85730; 86140; 87081; 93005; 93306; 94664